=== PATIENT | male | born 1935 | race Caucasian/White ===

== ENCOUNTER 2017-04-24 08:57 | Inpatient (IN) ==
[2017-04-24] MEDS ORDERED: CeFAZolin Pre 2,000 MG/100 ML 2,000 MG/100 ML BAG IVPB ONE (09:27)
[2017-04-24] MEDS ORDERED: Albuterol 2.5 MG/3 ML NEBULIZER IH ONE (09:27)
[2017-04-24] MEDS ORDERED: Ringers Solution, Lactated 1,000 ML IVC SCH ×3 (09:30→14:55)
[2017-04-24] MEDS ORDERED: Lidocaine -MPF 1% 2 ML VIAL ONE (09:30)
[2017-04-24] MEDS ORDERED: 0.9 % Sodium Chloride 500 ML IVC SCH (09:45)
[2017-04-24] MEDS ORDERED: *HR* Remifentanil 1 MG VIAL IVP ONE (10:04)
--- NOTE | 2017-04-24 10:20 | History & Physical Report ---
Date of Encounter: 04/24/17 Time of Encounter: 10:20 24 Hour HP Update - Instructions Instructions: If the History and Physical is less than 30 days old and was completed prior to A.M. admission and or procedure and has NOT been updated on calendar day of procedure please complete this update prior to performing procedure. - Update Patient reports changes in Medical Condition: No Changes in examination, assessment, or condition: No Changes in Medication: No Preop tests/diagnostics Reviewed: Yes Pre-Op MRSA Screen: Negative Surgery Remains Indicated: Yes Consent for Planned Operative Procedure(s) Verified: Yes - Pre-Operative Checklist Preoperative Checklist Indicated: No Prophylactic Antibiotic Ordered: Yes Home Medications Include Beta Crispin: No Beta Crispin Taken Today (Day of Surgery): No Beta Crispin Taken Yesterday (Day Prior to Surgery): No Is VTE Prophylaxis Indicated?: Yes
--- NOTE | 2017-04-24 10:26 | Anesthesia Evaluation PreOp ---
Date of Encounter: 04/24/17 Time of Encounter: 10:29 - Past History Planned Operation: Exploration of fusion, removal of hardware, potential f Cardiac History: HTN, Hyperlipidemia, Other (hx iliac aneurysm s/p repair) Pulmonary History: Smoker, COPD CNC MANAGER History: Other (R Leg symptoms from his back) Other Medical History: Renal (ckd) Alcohol Use: none Drug use: none Medications and Allergies Allopurinol [Zyloprim 100 MG] 100 mg PO DAILY 04/24/17 [History] Aspirin [Lo-Dose Aspirin EC] 81 mg PO DAILY 04/24/17 [History] Cholecalciferol (D-3) [Vitamin D] 5,000 unit PO DAILY 04/24/17 [History] Cyclobenzaprine HCl 5 mg PO Q8H PRN 04/24/17 [History] Finasteride [Proscar] 5 mg PO DAILY 04/24/17 [History] HYDROcodone/Acet 5/325 mg [[place] 5-325 mg] 1 tab PO Q6H PRN 04/24/17 [History] Rivaroxaban [Xarelto] 20 mg PO DAILY 04/24/17 [History] Simvastatin [Zocor] 20 mg PO HS 04/24/17 [History] Tamsulosin [Flomax] 0.4 mg PO DAILY 04/24/17 [History] Allergies No Known Allergies Allergy (Verified 04/19/17 13:39) - Meds/Allergy Pre-op Review Medications Reviewed: Yes Allergies Reviewed: Yes Beta Blockers on Current Med List: No Anesthesia Results - Labs Laboratory Tests 04/19/17 04/19/17 04/19/17 13:55 13:55 13:55 WBC 11.9 H Hgb 15.1 Hct 46.2 Plt Count 274 PT 13.5 H INR 1.2 APTT 32.7 Sodium 143 Potassium 3.8 Chloride 108 Carbon Dioxide 27 BUN 19 Creatinine 1.50 H Est GFR ( Amer) 55 L Est GFR (Non-Af Amer) 45 L BUN/Creatinine Ratio 13 Anesthesia Exam Last Vital Signs Temp 97.4 F L 04/24/17 09:39 Pulse 87 04/24/17 09:39 Resp 18 04/24/17 09:39 BP 137/80 04/24/17 09:39 Pulse Ox 95 04/24/17 09:39 Weight: 88 kg NPO (# of Hours): >> 8 hrs - HEENT Pupil (Motor): Pupils equal, EOMI Mallampati: III Teeth: Edentulous Oral Opening: Greater than 3 - CNC MANAGER CNC MANAGER Motor: Deficit RLE - Cardiac Rhythm: Regular Murmur: None - Pulmonary Breath Sounds: bilateral Rales Respiratory Effort: Symmetrical Anesthesia Assess/Plan ASA Score: 3 Modified [place] Scale for Level of Consciousness: Cooperative, oriented, and tranquil Anesthetic Plan: General Monitoring Plan: Standard Monitors Recovery Plan: PACU
[2017-04-24] MEDS ORDERED: *HR* Succinylcholine 200 MG/10 ML VIAL IVP ONE (10:38)
[2017-04-24] MEDS ORDERED: *HR* Propofol 200 MG/20 ML VIAL IVP ONE (10:38)
[2017-04-24] MEDS ORDERED: *HR* FentaNYL (PF) 100 MCG/2 ML VIAL ONE ×2 (10:38→13:23)
[2017-04-24] MEDS ORDERED: Lidocaine -MPF 2% 2 ML VIAL ONE (10:38)
[2017-04-24] MEDS ORDERED: Ondansetron 4 MG/2 ML VIAL ONE (10:38)
[2017-04-24] MEDS ORDERED: *HR* Meperidine 25 MG/ML SYRINGE IVP PRN (10:55)
[2017-04-24] MEDS ORDERED: Ondansetron 4 MG/2 ML VIAL IVP ONE (10:55)
[2017-04-24] MEDS ORDERED: *HR* FentaNYL (PF) 100 MCG/2 ML VIAL IVP PRN (10:55)
[2017-04-24] MEDS ORDERED: Dexamethasone 4 MG/ML VIAL ONE (11:46)
[2017-04-24] MEDS ORDERED: *HR* Rocuronium Bromide 50 MG/5 ML VIAL ONE (12:20)
[2017-04-24] MEDS ORDERED: *HR* Phenylephrine 10 MG/ML VIAL ONE (12:22)
--- NOTE | 2017-04-24 13:50 | Orthopedic Operative Note ---
Date of procedure: 04/24/17 Pre-op diagnosis: Failed hardware, status post lumbar fusion Post-op diagnosis: same Operation/Findings: Exploration of fusion, removal of hardware lumbar spine: The patient was brought to the operative theater where he underwent general endotracheal anesthesia. He was given antibiotics prior to the start of the procedure. Compression boots and stockings were used for deep vein thrombosis prophylaxis. The patient was placed prone on a Ilan table. The back was prepped and draped in the usual sterile fashion. A C-arm fluorographic device was brought into position such that both AP and lateral views of the hardware from L3-S1 could be evaluated. We made separate 3 cm incisions over the distal pedicle screws bilaterally which is overlying S1. We used Bovie cautery to make the incisions and then this incision was deepened through the lumbar fascia. Bovie cautery and Rose elevators were used to reflect the paraspinal musculature such that the distal hardware could be inspected. It was noted to be fairly abundant bone with a solid fusion and no evidence of pseudarthrosis upon palpation. There was some loosening and haloing around the bilateral S1 screws. We used a corby bur to cut through each francisca on the left and right between the L5 and S1 pedicle screws. Once the francisca had been disengaged from its distal attachment we removed the screw Overlying the rods. We subsequently removed the rods leaving only the bilateral pedicle screws in place. These were removed with standard instrumentation. we checked the francisca construct from L3-L5 bilaterally and it was noted to be solid without any evidence of loosening or pseudarthrosis. We copiously irrigated the wounds bilaterally and then closed the wounds in layers with 1 Vicryl for the fascia, 2-0 Vicryl for the subcutaneous tissue, and Dermabond was used for skin closure. Sterile dressings were placed over the wound, the patient was turned supine in a hospital bed, and was extubated in the operative theater. All sponge needles and instrument counts were correct at the end of the procedure. The patient tolerated the procedure well without complications. Anesthesia: GETA Surgeon: Kadeem Gregorio Jr Estimated blood loss (cc): 20 Disposition: PACU
[2017-04-24] MEDS ORDERED: *HR* OxyCODONE Immed Rel 5 MG TABLET PO PRN ×2 (13:52→14:55)
[2017-04-24] MEDS ORDERED: Naloxone 0.4 MG/ML INJ IVP PRN (13:52)
[2017-04-24] MEDS ORDERED: Ondansetron 4 MG/2 ML VIAL IVP PRN ×2 (13:52→14:55)
[2017-04-24] MEDS ORDERED: *HR* Morphine 2 MG/ML SYRINGE IVP PRN ×2 (13:52→14:55)
[2017-04-24] MEDS ORDERED: Esmolol 100 MG/10 ML VIAL IVP ONE (14:08)
--- NOTE | 2017-04-24 14:37 | Anesthesia Evaluation Post Op ---
Date of Encounter: 04/24/17 Time of Encounter: 14:37 - Vital Signs Vital Signs: Vital Signs/O2 Sat, Most Current Temp Pulse Resp BP Pulse Ox 97.8 F 96 16 140/97 96 04/24/17 14:31 04/24/17 14:31 04/24/17 14:31 04/24/17 14:31 04/24/17 14:31 - Lungs Lungs: Clear Ascult./Percussion - Airway Airway: Non-obstructed - Cardiovascular Regular Rate - Mental Status Mental Status: Alert & Oriented, Answers Appropriately - Pain Pain Scale: 0 Pain Scale used: Numeric (1 - 10) - Nausea Vomiting Nausea Vomiting: Not Present - Hydration Hydration: NPO, Has not voided - Discharge PostOp Status: Transfer Patient to floor
[2017-04-24] MEDS ORDERED: ceFAZolin 2,000 MG in D5% in Water 100 ML IVPB SCH (16:00)
[2017-04-24] MEDS: ceFAZolin 2,000 MG in D5% in Water 100 ML IVPB SCH (18:20)
[2017-04-24] MEDS: *HR* OxyCODONE Immed Rel 5 MG TABLET PO PRN (19:59)
[2017-04-25] MEDS: *HR* OxyCODONE Immed Rel 5 MG TABLET PO PRN (00:11)
[2017-04-25] MEDS: ceFAZolin 2,000 MG in D5% in Water 100 ML IVPB SCH (03:16)
[2017-04-25] MEDS ORDERED: Cholecalciferol (D-3) 1,000 UNIT TABLET PO SCH (09:00)
[2017-04-25] MEDS ORDERED: *HR* Rivaroxaban 10 MG TABLET PO SCH (09:00)
[2017-04-25] MEDS ORDERED: Aspirin Enteric Coated 81 MG Tablet PO SCH (09:00)
[2017-04-25] MEDS ORDERED: Finasteride 5 MG TABLET PO SCH (09:00)
--- NOTE | 2017-04-25 13:41 | Discharge Summary ---
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 - Discharge Medications Prescriptions: OxyCODONE Immed Rel [Roxicodone 5 MG] 5 mg PO Q4HR PRN #60 tab PRN Reason: Severe Pain Home Medications: Allopurinol [Zyloprim 100 MG] 100 mg PO DAILY 04/24/17 [History] Aspirin [Lo-Dose Aspirin EC] 81 mg PO DAILY 04/24/17 [History] Cholecalciferol (D-3) [Vitamin D] 5,000 unit PO DAILY 04/24/17 [History] Cyclobenzaprine HCl 5 mg PO Q8H PRN 04/24/17 [History] Finasteride [Proscar] 5 mg PO DAILY 04/24/17 [History] HYDROcodone/Acet 5/325 mg [[place] 5-325 mg] 1 tab PO Q6H PRN 04/24/17 [History] Rivaroxaban [Xarelto] 20 mg PO DAILY 04/24/17 [History] Simvastatin [Zocor] 20 mg PO HS 04/24/17 [History] Tamsulosin [Flomax] 0.4 mg PO DAILY 04/24/17 [History] OxyCODONE Immed Rel [Roxicodone 5 MG] 5 mg PO Q4HR PRN #60 tab 04/25/17 [Rx] Allergies/Adverse Reactions: Allergies No Known Allergies Allergy (Verified 04/19/17 13:39) - Impressions ITS Impressions Fluoroscopy 04/24/17 00:00 IMPRESSION: Intraprocedural fluoroscopic spot images as above. See separate procedure report for more information. D/ / Jalen Gonzalez MD / Jalen Gonzalez MD Interpreting Provider: Jalen Gonzalez MD Lumbar Spine X-Ray 04/24/17 00:00 IMPRESSION: Intraprocedural fluoroscopic spot images as above. See separate procedure report for more information. D/ / Jalen Gonzalez MD / Jalen Gonzalez MD Interpreting Provider: Jalen Gonzalez MD Date of admission: 04/24/17 14:51 Primary care physician: Grisel Kasper MD Consults: 04/24/17 13:52 Consult to Nurse Navigator [CONS] Routine Comment: spine navigator Consult to Occupational Therapy [CONS] Routine Comment: Evaluate, develop and implement POC Reason for Consult: Postoperative Consult to Physical Therapy [CONS] Routine Comment: Evaluate, develop and implement POC Reason for Consult: Postoperative 04/25/17 07:48 Consult to Teletypesetter Monitor [CONS] Routine Reason for SW Consult: DISCHARGE PLANNING - Patient Status Disposition: Home Health Service Condition: Good Functional capacity at discharge: uses cane/walker Overall status at discharge: patient is progressing back to baseline - Discharge Instructions Follow Up With: Grisel Kasper MD [Primary Care Provider] - - Diet and Activity Activity: as per physical therapy Diet: advance to your usual diet - Hospital Course Hospital course: Mr. Turner is a 81 year old male The patient had an uneventful postoperative course. Progressed from intravenous analgesic needs to oral analgesic needs only. Remained neurovascularly intact and mobilized satisfactorily. All intraoperative and/or postoperative radiographic studies were satisfactory. Patient is discharged with plan for rehabilitation and follow-up in 2 weeks post discharge on analgesic medication and patient's home medications. - Time Spent with Patient Total time spent providing and/or coordinating discharge services: - VTE Documentation of Mechanical Device: Graduated compression elastic hosiery
--- NOTE | 2017-04-25 15:00 | Electrocardiograph Report ---
[address] [address] Test Date: 2017-04-24 Pat Name: Harvinder Turner Department: 106 Room: [facility] Gender: M Online Editor: : 1935 Requested By: Desiree Najera Order Number: [id number] Reading MD: Kahlil Kirkland MD Measurements Intervals [place] Rate: 77 P: 57 [place]: 147 QRS: 60 QRSD: 89 T: 53 QT: 358 QTc: 389 Interpretive Statements SINUS RHYTHM Electronically Signed On 04-25-2017 14:58:36 EDT by Kahlil Kirkland MD
[2017-04-25 15:04] VITALS: BP 114/56
== END 2017-04-25 15:19 | disposition home health service (06) | DRG 497 ==
LOC: SAMDAY 08:57 → 3NENU 14:51
PROVIDERS: ADMIT Orthopaedic Surgery Orthopaedic Surgery of the Spine; ATTEND Orthopaedic Surgery Orthopaedic Surgery of the Spine